=== PATIENT | female | born 1960 | race Hispanic/Latino ===

== ENCOUNTER 2024-09-10 12:50 | Emergency (ER) | payer BC ==
[~2024-09-10] VITALS: Ht 152.4 cm; Wt 80.3 kg
[2024-09-10] MEDS ORDERED: KETOROLAC TROMETHAMINE 30 MG/ML VIAL ONE (13:58)
[2024-09-10] MEDS ORDERED: MECLIZINE HCL 12.5 MG TAB ONE (13:58)
[2024-09-10] MEDS ORDERED: SODIUM CHLORIDE 0.9% 1000ML 1,000 ML ONE (13:59)
[2024-09-10] MEDS: MECLIZINE HCL 12.5 MG TAB PO ONE (14:03)
[2024-09-10] MEDS: SODIUM CHLORIDE 0.9% 1000ML 1,000 ML IV ONE (14:04)
[2024-09-10] MEDS: KETOROLAC TROMETHAMINE 30 MG/ML VIAL IV STA (14:04)
[2024-09-10] MEDS ORDERED: ANTIVERT25 M1 PO (14:46)
[2024-09-10 15:05] VITALS: PULSE 60; RESP 1; TEMP 97.5; O2SAT 100
[2024-09-10] MEDS ORDERED: ROSUVASTATIN CA10 MG (15:19)
[2024-09-10] MEDS ORDERED: LYRICA75 MG PO (15:19)
[2024-09-10] MEDS ORDERED: VENTOLIN HFA18 GM INH (15:19)
[2024-09-10] MEDS ORDERED: NURTEC ODT75 MG (15:19)
[2024-09-10] MEDS ORDERED: EPINEPHRIN0.3 MG/0.3 (15:19)
[2024-09-10] MEDS ORDERED: VITAMIN D3125 MCG (15:19)
[2024-09-10] MEDS ORDERED: FLONASE ALLERG9.9 ML INH (15:19)
[2024-09-10] MEDS ORDERED: TOPIRAMATE25 MG PO (15:19)
[2024-09-10] MEDS ORDERED: LINZESS72 MCG (15:19)
[2024-09-10] MEDS ORDERED: BISOPROLOL-HCT1 EACH (15:19)
[2024-09-10] MEDS ORDERED: CHLORZOXAZONE500 MG PO (15:19)
[2024-09-10] MEDS ORDERED: NEURONTIN100 MG PO (15:19)
== END 2024-09-10 15:05 | disposition home or self-care (01) ==
LOC: FSED 12:54
DX: R42 Dizziness and giddiness (principal); R51.9 Headache, unspecified; I10 Essential (primary) hypertension; J45.909 Unspecified asthma, uncomplicated; Z11.52 Encounter for screening for COVID-19
CPT/HCPCS: 0223U; 70450; 71046; 80053; 81003; 82553; 83518; 84484; 85025; 85379; 87400; 87420; 93005; 96374; 99284; J1885; J7030